=== PATIENT | male | born 1945 ===

== ENCOUNTER → 2023-09-05 14:01 | Outpatient (BNVA) | payer MEDICARE, SELFPAY | PROVIDERS: PCP Nurse Practitioner Family; Visit Provider Registered Nurse Emergency ==

== ENCOUNTER 2023-09-14 14:54 | Emergency (ER) | payer MEDICARE, SELFPAY ==
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
--- NOTE | ~2023-09-14 | CT_ITS ---
EXAMINATION: CT CERVICAL SPINE without contrast CLINICAL INFORMATION: Reason for Exam Seizure COMPARISON: No prior CT available, TECHNIQUE: Computed axial sagittal and coronal images acquired using department's standard protocol. This CT examination was performed using dose optimization techniques as appropriate, variously including the following: *Automated exposure control *Adjustment of mA and/or kV according to patient size (this includes techniques or standardized protocols for targeted exams where dose is matched to indication/reason for exam; i.e. extremities or head) *Use of iterative reconstruction technique CONTRAST: None DLP: 3234 mGy-cm FINDINGS: SKULL BASE: Visualized structures at skull base are normal, Included facial sinuses are clear, CERVICAL VERTEBRAE: Seven cervical vertebrae identified maintaining proper height and alignment, sclerotic density within the vertebral body of C7 commonly a bone island. However if patient has history of possible prostate CA, cannot rule out sclerotic metastasis. ATLANTOAXIAL AND ATLANTOOCCIPITAL ARTICULATION: Included occipital condyle are properly articulating with C1, measuring of C1 is intact. Proper articulation of the odontoid process with C1. POSTERIOR SPINES and lateral transverse processes: All are intact. DISCS: Narrowing of intervertebral disc spaces and developed small osteophyte from the edges of endplates encroaching on the neural foramen bilaterally at multiple levels. PREVERTEBRAL SOFT TISSUE: Within normal limits, no evidence of prevertebral soft tissue swelling. Visualized portion of the trachea larynx are normal. LUNG APICES: Included lung apices are clear bilaterally. Paravertebral soft tissue including LYMPH NODE AND SALIVARY GLANDS THYROID: Paravertebral soft tissue including cervical lymph nodes are within normal limits. Included paranasal and salivary unremarkable. CT/CT cervical spine wo IV con IMPRESSION: 1. No CT evidence of cervical spine fracture. 2. Degenerative disc disease evident by Narrowing of intervertebral disc spaces and developed small osteophyte from the edges of endplates encroaching on the neural foramen bilaterally at multiple levels. If patient has neurological symptoms consider correlation with follow-up MRI. 3. Facet joints arthropathy at multiple levels.
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
[2023-09-14 15:10] VITALS: BP 134/63; BP 146/86; PULSE 60; PULSE 66; RESP 20; TEMP 37; O2SAT 100; O2SAT 98; BMI 33.5
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
[2023-09-14] MEDS: fentaNYL citrate/PF 100 MCG/2 ML VIAL 25 MCG IVPUSH (15:47)
[2023-09-14 16:01] LABS: MANUAL DIFF FLAG NO
[2023-09-14 16:07] LABS: Basophils Percent Auto 0.1 % (0-2); Eosinophils Percent Auto 0.3 % (0-4); Hemoglobin 11.2 g/dl (14.0-18.0); Imm Gran Abs Auto 0.12 X10*3/uL (0.00-0.03); Imm Gran Pct Auto 1.5 % (0.0-0.4); Lymphocytes Absolute Auto 1.1 X10*3/uL (1.2-4.9); Lymphocytes Percent Auto 13.6 % (20-40); Mean Corpuscular HGB Conc 32.9 g/dl (31.0-36.0); Mean Corpuscular Hemoglobin 31.4 pg (27.0-33.0); Mean Corpuscular Volume 95.2 fL (80.0-98.0); Mean Platelet Volume 10.7 fL (9.4-12.4); Monocytes Percent Auto 12.5 % (2-11); Neutrophils Absolute Auto 5.7 x10*3/uL (2.0-8.3); Platelet Count 181 X10*3/uL (160-400); Red Blood Count 3.57 X10*6/uL (4.60-5.80); Red Cell Distribution Width 14.3 % (11.0-16.0)
[2023-09-14 16:18] LABS: Alanine Aminotransferase 29 U/L (0-40); Albumin Level 3.9 g/dL (3.5-5.0); Alkaline Phosphatase 55 U/L (39-117); Anion Gap 14 (12-20); Aspartate Amino Transferase 34 U/L (5-37); Bilirubin Direct 0.1 mg/dL (0.0-0.5); Bilirubin Total 0.4 mg/dL (0.0-1.0); Blood Urea Nitrogen 40 mg/dL (9-16); Calcium 8.8 mg/dL (8.4-10.2); Carbon Dioxide 16 mmol/L (22-29); Chloride 115 mmol/L (96-108); Creatinine Clr Calc Pharmacy 30.5; Estimated Glomerular Filt Rate 32; Glucose Random 109 mg/dL (60-115); Lipase 52 U/L (8-78); Potassium 5.4 mmol/L (3.3-5.1); Sodium 140 mmol/L (135-145); Total Protein 6.9 g/dL (6.5-8.0)
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
[2023-09-14 16:24] LABS: Troponin-I High Sensitivity 4.4 ng/L (<3.5-35.0)
[2023-09-14] MEDS: iohexoL 350 MG/ML 100 ML INFUS..BTL IV (17:29)
[2023-09-14 17:30] VITALS: BP 113/65; PULSE 62; RESP 18; O2SAT 99
[2023-09-14 18:04] VITALS: BP 122/54; PULSE 61; RESP 18; TEMP 36.6; O2SAT 99
[2023-09-14] MEDS: Diphth,Pertus(ACell),Tet Adult 0.5 ML SYRINGE IM (18:05)
[2023-09-14 19:15] VITALS: PULSE 60; RESP 12; TEMP 36.6; O2SAT 99
[2023-09-14 21:41] LABS: INTERNATIONAL NORM RATIO 1.3 (0.9-1.1); Prothrombin Time 15.4 SEC (11.1-13.3)
[2023-09-14 21:44] LABS: Partial Thromboplastin Time 31.4 SEC (26.0-36.8)
[2023-09-14] MEDS: oxyCODONE HCl Immed Release 5 MG TABLET PO (23:10)
[2023-09-14] MEDS: Acetaminophen 325 MG TABLET 975 MG PO (23:10)
--- NOTE | 2023-09-15 01:19 | PC.NURSE ---
T/w contacted his son David at [phone]. Per son, he will be arriving to pick pt up and transport him home within the hour.
[2023-09-15 02:32] VITALS: BP 122/54; PULSE 60; RESP 16; TEMP 36.6; O2SAT 99
== END 2023-09-15 02:37 | disposition home or self-care (01) ==
PROVIDERS: Emergency Provider Emergency Medicine
DX: S70.12XA Contusion of left thigh, initial encounter (principal); S80.212A Abrasion, left knee, initial encounter; S50.312A Abrasion of left elbow, initial encounter; S50.311A Abrasion of right elbow, initial encounter; V47.5XXA Car driver injured in collision with fixed or stationary object in traffic accident, initial encounter; Y93.89 Activity, other specified; Y92.410 Unspecified street and highway as the place of occurrence of the external cause; Y99.9 Unspecified external cause status; Z23 Encounter for immunization; Z79.02 Long term (current) use of antithrombotics/antiplatelets; Z79.01 Long term (current) use of anticoagulants; Z79.899 Other long term (current) drug therapy; I48.0 Paroxysmal atrial fibrillation; E78.5 Hyperlipidemia, unspecified; I10 Essential (primary) hypertension
CPT/HCPCS: 36415; 70450; 71045; 71260; 72125; 72170; 73552; 73700; 74177; 80048; 80076; 83690; 84484; 85025; 85610; 85730; 90471; 90715; 93005; 96374; 99285; J3010; Q9967

== ENCOUNTER → 2023-09-14 15:18 | Outpatient (BNV) | payer MEDICARE, SELFPAY | PROVIDERS: Emergency Provider Emergency Medicine; Visit Provider Internal Medicine Cardiovascular Disease | DX: R94.31 Abnormal electrocardiogram [ECG] [EKG] (principal); V47.5XXA Car driver injured in collision with fixed or stationary object in traffic accident, initial encounter; Z04.3 Encounter for examination and observation following other accident | CPT/HCPCS: 93010 ==

== ENCOUNTER 2023-10-31 13:04 | Outpatient (AMB) | payer MEDICARE, SELFPAY ==
[2023-10-31 13:30] VITALS: BP 135/77; PULSE 88; RESP 18; O2SAT 98
--- NOTE | 2023-10-31 13:30 | MHC.OFFVIS ---
Vital Signs 10/31/23 13:30 Height 5 ft 5 in BP 135/77 Blood Pressure Location Lt brachial Position Sitting Respiration 18 Pulse 88 Pulse Source Pulse Oximeter Pulse Oximetry (%) 98 Oxygen Delivery Method Room Air Intake Visit Reasons: Back pain Allergies No Known Allergies Allergy (Verified 09/14/23 15:15) HPI Comments Details: David is a very pleasant 70-year-old male who presents to the office today for evaluation management of his chronic lower back pain. Patient reports that he has been suffering with this pain for greater than 30 years. Endorses midline lower back pain without radiation down either lower extremity. Pain is exacerbated by standing and improves with sitting and rest. Patient has attempted physical therapy multiple times without improvement of his pain. He had injections 1 year ago that did not help. He is currently taking Tylenol for his pain which provides minimal improvement. He has tried muscle relaxers without improvement of his pain. Currently taking Eliquis therefore he has not able to use nonsteroidal anti-inflammatory medications. Topical medications and lidocaine patches were also unhelpful in relieving his pain. Patient was previously in a chronic opioids which did provide him some relief however his doctor stopped prescribing them as he is on blood thinners and they were concerned for fall and injury. He denies red flag symptoms including new loss of bowel, bladder or saddle anesthesia. Pain today is rated as 7/10, constant and worse during the day In terms of muscle damage condition is described as hot, burning, dull, tingling, cramping, aching, pins and needles. Pain is negatively impacting patient's enjoyment of life, general activity, mood, sleep and walking Unable to have MRI due to pacemaker. 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 Answers questions appropriately. Fully engaged in examination. Skin: warm, dry, intact HEENT: Normocephalic. Hearing intact. Cardiac: External chest normal in appearance. Respiratory: No cough, audible wheezing or stridor. Abdomen: without gross distension. MS: No obvious swelling or deformities. Able to transition from sit to stand unassisted. Ambulates with bilaterally normal heel strike and toe off SLR negative bilaterally Facet loading positive Pain with forward flexion and extension Nontender over bilateral PSIS Neurological: Oriented to person, place, time and situation. Thought process intact. Ambulates with antalgic gait Psychiatric: Appropriate mood and affect. Good judgment and insight. Assessment & Plan Assessment & Plan (1) Chronic back pain: Code(s): M54.9 - Dorsalgia, unspecified; G89.29 - Other chronic pain Category: Medical Plan Patient presented to the office today for evaluation management of his chronic lower back pain. He has exhausted greater than 6 months of conservative therapy including Tylenol, opioids, topical medications, physical therapy and previous injections. He is unable to take nonsteroidal anti-inflammatory medications due to his current use of Eliquis. Discussed options for treatment including diagnostic injections, steroid injections, peripheral nerve stimulation, radiofrequency ablation or more per minute neuromodulation. Patient would like to proceed with spinal cord stimulation trial, pamphlets were given. Patient aware that this would require psych evaluation. Will order CT thoracic spine to evaluate epidural space to ensure there will be any problems with lead advancement. Patient is unable to have MRI due to pacemaker. Recent creatinine elevated, will avoid imaging with contrast. Schedule for fluoroscopy guided SCS trial under anesthesia with [employer]. All questions and concerns were answered, patient agrees with the plan. Follow up after SCS trial, sooner if needed. Orders: Orders CT thoracic spine wo IV con Today G89.29 - Other chronic pain, M54.9 - Dorsalgia, unspecified Coding Level of Care Code New Pt Level 4 (43502) Diagnoses Chronic back pain M54.9; G89.29
== END 2023-10-31 13:55 | disposition home or self-care (01) ==
PROVIDERS: Visit Provider Registered Nurse Emergency
DX: M54.9 Dorsalgia, unspecified (principal); G89.29 Other chronic pain
CPT/HCPCS: 99204

== ENCOUNTER → 2023-10-31 13:04 | Outpatient (BNVA) | payer MEDICARE, SELFPAY | PROVIDERS: Visit Provider Registered Nurse Emergency | DX: M54.9 Dorsalgia, unspecified (principal); G89.29 Other chronic pain | CPT/HCPCS: 99202 ==

== ENCOUNTER 2023-12-14 14:03 | Outpatient (REF) | payer MEDICARE, SELFPAY ==
--- NOTE | ~2023-12-14 | CT_ITS ---
EXAMINATION: CT THORACIC SPINE WITHOUT CONTRAST CLINICAL INFORMATION: Back pain, unspecified. Plan for neural stimulator, patient unable to have an MRI due to pacemaker. Evaluate epidural space for lead placement. COMPARISON: Correlation made with CT chest 09/14/2023. TECHNIQUE: Spiral CT of the thoracic spine was performed without contrast. Multiplanar reformatted images including thin section axial images, coronal, and sagittal reformats, were reconstructed from the axial data set. This CT examination was performed using dose optimization techniques as appropriate, variously including the following: *Automated exposure control *Adjustment of mA and/or kV according to patient size (this includes techniques or standardized protocols for targeted exams where dose is matched to indication/reason for exam; i.e. extremities or head) *Use of iterative reconstruction technique DLP: 1118 mGy-cm FINDINGS: CORONAL ALIGNMENT: -There is a minimal dextroconvex scoliosis, apex at T5. No lateral subluxations. SAGITTAL ALIGNMENT: -There is a normal thoracic kyphosis. There are no significant thoracic subluxations. There is a 2 mm degenerative anterolisthesis of C7 on T1. VERTEBRAL BODIES/BONE MARROW: -There are 12 rib-bearing vertebral bodies. -Minimal superior endplate wedging is present at C7. There are otherwise no compression deformities, or suspicious focal bony abnormalities. There is a 7 mm bone island in the right aspect of C7. There is an 11 mm bone island in the right aspect of T9. DISCS: -There is significant disc space narrowing in the inferior cervical spine involving C5-6, and C6-7. Mild disc space narrowing at C7-T1. Otherwise, mild disc space narrowing present spanning T6-T12 with theodore-right lateral disc osteophytic ridges, which are fused and have an appearance which could be consistent with mild DISH. SPINAL CANAL: -No abnormal developmental findings. See below for individual levels. No evidence of moderate or high-grade central canal narrowing or significant disc herniation or bulge. PARASPINAL SOFT TISSUES/LUNGS/MEDIASTINUM: -Aorta is normal in caliber with moderate calcification. -Imaged mediastinum demonstrates no adenopathy or mass. No pericardial or pleural effusion. The heart is mildly enlarged. -Mild elevation right hemidiaphragm. -Pacer lead extending into the right ventricle. -Imaged thyroid gland is minimally heterogeneous by CT without dominant nodule. -Image long was are somewhat difficult to evaluate due to extensive respiratory motion artifact although no gross consolidation or abnormal groundglass opacity is present. No suspicious nodules appreciated within the confines of motion artifact. -Imaged paraspinal and paravertebral soft tissues appear normal. Imaged retroperitoneal and intraperitoneal structures demonstrate probable gallstone which is incompletely imaged. AXIAL DISC SPACE IMAGING: C7-T1: No central canal or neural foraminal narrowing. There is a minimal disc osteophytic ridge complex. T1-T2: No central canal or neural foraminal narrowing. Mild facet arthropathy bilaterally. T2-T3: No central canal or neural foraminal narrowing. Minimal calcification ligamentum flavum. Mild facet arthropathy bilaterally. T3-T4: No central canal or neural foraminal narrowing. Trace right ligamentum flavum calcification. Minimal facet arthropathy bilaterally. T4-T5: No central canal or neural foraminal narrowing. Minimal bilateral facet arthropathy and posterior ligamentous calcification. T5-T6: There is a central disc osteophytic protrusion without significant mass effect on the thecal sac. There is no central canal or neural foraminal narrowing. There is mild facet arthropathy bilaterally. T6-T7: No central canal or neural foraminal narrowing. Mild facet arthropathy bilaterally. T7-T8: No central canal or neural foraminal narrowing. Minimal calcification right ligamentum flavum. Mild facet arthropathy bilaterally. Theodore-right lateral disc osteophyte arising from the anterior vertebral body. T8-T9: No central canal or neural foraminal narrowing. Mild ligamentous calcification dorsally. Mild facet arthropathy left greater than right. Theodore-right lateral disc osteophyte arising from the anterior vertebral body. T9-T10: No central canal or neural foraminal narrowing. Mild posterior ligamentous calcification. Mild to moderate right greater than left facet arthropathy. Theodore-right lateral disc osteophyte arising from the anterior vertebral body. T10-T11: No significant disc bulging. Prominent dorsal ligamentous calcification left greater than right results in mild left greater than right lateral recess narrowing. No central canal narrowing. Neural foramen are patent. Small theodore-right lateral disc osteophyte arising from the anterior vertebral body. T11-T12: Shallow diffuse disc osteophytic ridge complex. No significant mass effect on the thecal sac. Minimal right ligamentous calcification. Mild to moderate bilateral facet arthropathy. Theodore-right lateral disc osteophyte arising from the anterior vertebral body. T12-L1: Minimal central calcified disc osteophytic protrusion. No significant mass effect on the thecal sac. Mild bilateral facet arthropathy. No significant central canal or neural foraminal narrowing. CT/CT thoracic spine wo IV con IMPRESSION: 1. Findings as above. 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 Minimal dextroconvex thoracic scoliosis apex at T5. 2. No significant central canal or neural foraminal narrowing at any level. 3. Mild cardiac enlargement with single right ventricular pacer lead. 4. Images lungs clear within the confines of respiratory motion. 5. Cholelithiasis, partially imaged. 6. Additional ancillary findings as discussed in the body of the report. Electronically signed by: Mauricio Pineda MD 01/28/2024 10:10 AM EDT
== END 2023-12-14 14:04 | disposition home or self-care (01) ==
LOC: HO.CT 14:03
PROVIDERS: Visit Provider Registered Nurse Emergency
DX: M54.9 Dorsalgia, unspecified (principal); G89.29 Other chronic pain
CPT/HCPCS: 72128

== ENCOUNTER → 2023-12-14 14:05 | Outpatient (BNV) | payer MEDICARE, SELFPAY | PROVIDERS: Visit Provider Radiology Diagnostic Radiology | DX: M54.9 Dorsalgia, unspecified (principal) | CPT/HCPCS: 72128 ==